=== PATIENT | male | born 1965 | race Caucasian/White ===

== ENCOUNTER 2018-12-07 04:40 | Emergency (ER) | payer SELFPAY, OTHER ==
[2018-12-07] MEDS: KETOROLAC 15 MG INJ IM (05:51)
[2018-12-07] MEDS ORDERED: CYCLOBENZAPRINE 10 MG TAB PO (06:00)
== END 2018-12-07 06:41 | disposition left against medical advice (07) ==
LOC: FTE 04:40
DX: S29.012A Strain of muscle and tendon of back wall of thorax, initial encounter (principal); X58.XXXA Exposure to other specified factors, initial encounter; Y92.9 Unspecified place or not applicable
CPT/HCPCS: 96372; 99284-25